=== PATIENT | female | born 1990 | race Caucasian/White ===

== ENCOUNTER 2016-10-29 17:22 | Emergency (ER) | payer MEDICAID, OTHER ==
[~2016-10-29] VITALS: Ht 172.7 cm; Wt 103.0 kg
[2016-10-29] MEDS ORDERED: BACITRACIN ZINC OINT UDPKT TOP ONE (21:45)
[2016-10-29] MEDS ORDERED: HYDROCODONE/ACETAMINOPHEN 5/325MG TABLET PO ONE (21:45)
[2016-10-29] MEDS ORDERED: TETANUS, DIPHTHERIA, PERTUSSIS VAC/PF 0.5ML (>7YR OLD) IM ONE (21:45)
[2016-10-29] MEDS ORDERED: LIDOCAINE HCL 1% 20ML VIAL (Pyxis) INJ INFIL ONE (22:00)
[2016-10-29 23:25] VITALS: BP 134/75
== END 2016-10-29 23:33 | disposition home or self-care (01) ==
LOC: ER 19:47
DX: L02.412 Cutaneous abscess of left axilla (principal); F12.10 Cannabis abuse, uncomplicated; F17.200 Nicotine dependence, unspecified, uncomplicated
CPT/HCPCS: 10060; 81025; 90471; 90715; 99283; J3490; Z7610

== ENCOUNTER 2019-01-23 08:28 | Emergency (ER) | payer MEDICAID, OTHER ==
[~2019-01-23] VITALS: Ht 170.2 cm; Wt 112.0 kg
[2019-01-23] MEDS ORDERED: KETOROLAC 60MG/2ML VIAL IM ONE (09:15)
[2019-01-23 09:30] VITALS: BP 138/68
== END 2019-01-23 09:39 | disposition home or self-care (01) ==
LOC: ER 08:28
DX: S16.1XXA Strain of muscle, fascia and tendon at neck level, initial encounter (principal); V43.52XA Car driver injured in collision with other type car in traffic accident, initial encounter; Y93.89 Activity, other specified; Y92.488 Other paved roadways as the place of occurrence of the external cause
CPT/HCPCS: 81025; 96372; 99283; J1885